=== PATIENT | male | born 1940 | race African-American/Black ===

== ENCOUNTER 2018-01-01 18:50 | Inpatient (IN) | payer MEDICARE, MEDICAID ==
[~2018-01-01] VITALS: Ht 180.3 cm; Wt 73.1 kg
[2018-01-01] MEDS ORDERED: SODIUM CHLORIDE 0.9% 1,000 ML IV ONE (22:49)
[2018-01-01] MEDS ORDERED: ONDANSETRON HCL 4MG/2ML INJ IV STA (22:49)
[2018-01-02] VITALS (7 sets, daily range): BP systolic 119–150; BP diastolic 58–87
[2018-01-02 02:14] LABS: CHLORIDE 109 mEq/L (98-107)
[2018-01-02 03:02] LABS: BASOPHILS % 0.5 % (0.0-2.0); EOSINOPHILS % 0.6 % (0.0-5.0); HEMATOCRIT. 35.4 % (42.0-52.0); HEMOGLOBIN. 11.6 g/dL (14.0-18.0); LYMPHOCYTES % 14.9 % (20.0-50.0); MEAN CORPUSCULAR HEMOGLOBIN 27.6 pg (28.0-32.0); MEAN CORPUSCULAR VOLUME 84.3 fL (80.0-94.0); MEAN PLATELET VOLUME 8.9 fl (7.4-10.4); MONOCYTES % 9.2 % (2.0-8.0); NEUTROPHILS % 74.8 % (40.0-76.0); PLATELET 247 x1000/uL (130-400); RED CELL DISTRIBUTION WIDTH 13.7 % (11.6-14.6)
[2018-01-02 03:16] LABS: INR 1.1; PROTHROMBIN TIME 10.6 sec (9.1-11.1)
[2018-01-02 08:21] LABS: CLARITY URINE TURBID (CLEAR); COLOR URINE YELLOW (YELLOW)
[2018-01-02 08:22] LABS: KETONES URINE TRACE (NEGATIVE); NITRITE URINE NEGATIVE (NEGATIVE); OCCULT BLOOD URINE TRACE (NEGATIVE); PROTEIN URINE TRACE (NEGATIVE); SPECIFIC GRAVITY URINE 1.021 (1.005-1.030); UROBILINOGEN URINE 0.2 E.U./dL (0.2-1.0)
[2018-01-02 08:23] LABS: LEUKOCYTE ESTERASE URINE NEGATIVE (NEGATIVE)
[2018-01-02] MEDS ORDERED: ZOLPIDEM TARTRATE 5MG TABLET PO PRN (08:45)
[2018-01-02] MEDS ORDERED: MAGNESIUM/ALUMINUM HYDROXIDE/SIMETHICONE 30ML UDC PO PRN (08:45)
[2018-01-02] MEDS ORDERED: TRAMADOL 50MG TABLET PO PRN (08:45)
[2018-01-02] MEDS ORDERED: LORAZEPAM 0.5MG TABLET PO PRN (08:45)
[2018-01-02] MEDS ORDERED: ONDANSETRON HCL 4MG/2ML INJ IV PRN ×2 (08:45→15:00)
[2018-01-02] MEDS ORDERED: CLONIDINE 0.1MG TABLET PO PRN (08:45)
[2018-01-02] MEDS ORDERED: GUAIFENESIN 200MG/10ML SUGAR FREE UDC PO PRN (08:45)
[2018-01-02] MEDS ORDERED: IPRATROPIUM/ALBUTEROL 0.5-3(2.5)MG/3ML NEB INH PRN (08:45)
[2018-01-02] MEDS ORDERED: NA PHOS,M-B/NA PHOS,DI-BA ENEMA 118ML PR PRN (08:45)
[2018-01-02] MEDS ORDERED: DOCUSATE SODIUM 100MG CAPSULE PO PRN (08:45)
[2018-01-02] MEDS ORDERED: DEXTROSE 50% WATER 50ML SYRINGE IV PRN (08:45)
[2018-01-02] MEDS ORDERED: ACETAMINOPHEN 325MG TABLET PO PRN (08:45)
[2018-01-02] MEDS: METOPROLOL TARTRATE 25MG TABLET PO SCH ×2 (09:18→20:04)
[2018-01-02] MEDS: FAMOTIDINE 20MG TABLET PO SCH ×2 (09:18→20:04)
[2018-01-02] MEDS: ENOXAPARIN 40MG/0.4ML SYR SUBCUT SCH (09:19)
[2018-01-02] MEDS: BLOOD SUGAR DIAGNOSTIC STRIP TEST SCH ×3 (12:13→21:21)
[2018-01-02] MEDS: INSULIN LISPRO 100 UNITS/ML SUBCUT SCH ×3 (12:14→21:00)
[2018-01-02] MEDS: METOCLOPRAMIDE 10MG/10 ML UDC PO SCH ×3 (12:21→20:03)
[2018-01-02] MEDS: SUCRALFATE 1 G/10 ML UDC PO SCH ×3 (12:25→20:03)
[2018-01-02 17:16] LABS: CREATINE KINASE MB FRACTION 1.8 ng/mL (0.5-3.6)
[2018-01-03 02:10] LABS: CREATINE KINASE MB FRACTION 1.6 ng/mL (0.5-3.6)
[2018-01-03 04:00] VITALS: BP 143/60
[2018-01-03] MEDS: INSULIN LISPRO 100 UNITS/ML SUBCUT SCH ×4 (06:19→20:54)
[2018-01-03] MEDS: BLOOD SUGAR DIAGNOSTIC STRIP TEST SCH ×4 (06:19→20:54)
[2018-01-03] MEDS: METOCLOPRAMIDE 10MG/10 ML UDC PO SCH ×4 (06:25→20:49)
[2018-01-03] MEDS: SUCRALFATE 1 G/10 ML UDC PO SCH ×4 (06:25→20:48)
[2018-01-03 07:26] VITALS: BP 129/69
[2018-01-03 08:00] VITALS: BP 129/69
[2018-01-03] MEDS: METOPROLOL TARTRATE 25MG TABLET PO SCH ×2 (09:23→20:49)
[2018-01-03] MEDS: FAMOTIDINE 20MG TABLET PO SCH ×2 (09:23→20:49)
[2018-01-03] MEDS: ENOXAPARIN 40MG/0.4ML SYR SUBCUT SCH (09:23)
[2018-01-03 12:20] VITALS: BP 140/62
[2018-01-03 20:00] VITALS: BP 143/73
[2018-01-04] VITALS: BP 146/72
[2018-01-04 04:00] VITALS: BP 131/69
[2018-01-04] MEDS: METOCLOPRAMIDE 10MG/10 ML UDC PO SCH ×4 (06:07→20:29)
[2018-01-04] MEDS: SUCRALFATE 1 G/10 ML UDC PO SCH ×4 (06:07→20:29)
[2018-01-04 08:00] VITALS: BP 146/77
[2018-01-04] MEDS: FAMOTIDINE 20MG TABLET PO SCH ×2 (09:36→20:29)
[2018-01-04] MEDS: METOPROLOL TARTRATE 25MG TABLET PO SCH ×2 (09:36→20:29)
[2018-01-04] MEDS: ENOXAPARIN 40MG/0.4ML SYR SUBCUT SCH (09:37)
[2018-01-04] MEDS: INSULIN LISPRO 100 UNITS/ML SUBCUT SCH ×3 (12:27→20:29)
[2018-01-04] MEDS: BLOOD SUGAR DIAGNOSTIC STRIP TEST SCH ×3 (12:27→20:29)
[2018-01-04 16:43] VITALS: BP 151/83
[2018-01-04 20:00] VITALS: BP 145/75
[2018-01-05] VITALS: BP 146/75
[2018-01-05 04:00] VITALS: BP 152/76
[2018-01-05] MEDS: SUCRALFATE 1 G/10 ML UDC PO SCH ×4 (06:20→20:46)
[2018-01-05] MEDS: METOCLOPRAMIDE 10MG/10 ML UDC PO SCH ×4 (06:20→20:46)
[2018-01-05] MEDS: BLOOD SUGAR DIAGNOSTIC STRIP TEST SCH ×4 (06:20→21:30)
[2018-01-05] MEDS: INSULIN LISPRO 100 UNITS/ML SUBCUT SCH ×4 (06:24→21:50)
[2018-01-05 08:00] VITALS: BP 136/74
[2018-01-05] MEDS: FAMOTIDINE 20MG TABLET PO SCH ×2 (08:38→20:46)
[2018-01-05] MEDS: METOPROLOL TARTRATE 25MG TABLET PO SCH ×2 (08:38→20:47)
[2018-01-05] MEDS: ENOXAPARIN 40MG/0.4ML SYR SUBCUT SCH (08:39)
[2018-01-05 12:00] VITALS: BP 166/90
[2018-01-05 13:06] LABS: CA 27.29 39.7 U/mL (0.0-38.6)
[2018-01-05 16:00] VITALS: BP 150/86
[2018-01-05 20:00] VITALS: BP 143/69
[2018-01-06] VITALS: BP 118/64
[2018-01-06 04:00] VITALS: BP 141/70
[2018-01-06] MEDS: BLOOD SUGAR DIAGNOSTIC STRIP TEST SCH ×4 (06:18→20:55)
[2018-01-06] MEDS: SUCRALFATE 1 G/10 ML UDC PO SCH ×4 (06:18→20:34)
[2018-01-06] MEDS: METOCLOPRAMIDE 10MG/10 ML UDC PO SCH ×4 (06:18→20:34)
[2018-01-06] MEDS: INSULIN LISPRO 100 UNITS/ML SUBCUT SCH ×4 (06:46→20:55)
[2018-01-06 08:24] LABS: CANCER ANTIGEN 125 45.9 U/mL (Not Estab.)
[2018-01-06] MEDS: FAMOTIDINE 20MG TABLET PO SCH ×2 (08:31→20:34)
[2018-01-06] MEDS: METOPROLOL TARTRATE 25MG TABLET PO SCH ×2 (08:32→20:34)
[2018-01-06] MEDS: ENOXAPARIN 40MG/0.4ML SYR SUBCUT SCH (09:00)
[2018-01-06 12:00] VITALS: BP 139/67
[2018-01-06 16:00] VITALS: BP 137/65
[2018-01-06 20:00] VITALS: BP 122/64
[2018-01-07] VITALS: BP 112/70
[2018-01-07 04:00] VITALS: BP 123/88
[2018-01-07] MEDS: METOCLOPRAMIDE 10MG/10 ML UDC PO SCH ×4 (06:15→20:31)
[2018-01-07] MEDS: SUCRALFATE 1 G/10 ML UDC PO SCH ×4 (06:15→20:39)
[2018-01-07] MEDS: BLOOD SUGAR DIAGNOSTIC STRIP TEST SCH ×4 (06:16→20:39)
[2018-01-07] MEDS: INSULIN LISPRO 100 UNITS/ML SUBCUT SCH ×4 (06:19→20:39)
[2018-01-07 08:00] VITALS: BP 145/79
[2018-01-07] MEDS: ENOXAPARIN 40MG/0.4ML SYR SUBCUT SCH (09:00)
[2018-01-07] MEDS: FAMOTIDINE 20MG TABLET PO SCH ×2 (09:36→20:40)
[2018-01-07] MEDS: METOPROLOL TARTRATE 25MG TABLET PO SCH ×2 (09:36→20:40)
[2018-01-07] MEDS ORDERED: LIDOCAINE HCL 1% 20ML VIAL (Pyxis) INJ ONE (11:09)
[2018-01-07] MEDS ORDERED: SODIUM BICARBONATE 4% (2.4MEQ) 5ML VIAL IV ONE (11:10)
[2018-01-07 16:24] VITALS: BP 137/51
[2018-01-07 20:00] VITALS: BP 141/70
[2018-01-08] VITALS: BP 134/68
[2018-01-08 04:00] VITALS: BP 141/69
[2018-01-08] MEDS: BLOOD SUGAR DIAGNOSTIC STRIP TEST SCH ×4 (06:25→20:42)
[2018-01-08] MEDS: INSULIN LISPRO 100 UNITS/ML SUBCUT SCH ×4 (06:27→20:42)
[2018-01-08] MEDS: METOCLOPRAMIDE 10MG/10 ML UDC PO SCH ×4 (06:27→20:43)
[2018-01-08] MEDS: SUCRALFATE 1 G/10 ML UDC PO SCH ×4 (06:27→20:43)
[2018-01-08 08:00] VITALS: BP 144/73
[2018-01-08] MEDS: FAMOTIDINE 20MG TABLET PO SCH ×2 (08:11→20:44)
[2018-01-08] MEDS: METOPROLOL TARTRATE 25MG TABLET PO SCH ×2 (08:11→20:44)
[2018-01-08] MEDS: ENOXAPARIN 40MG/0.4ML SYR SUBCUT SCH (08:11)
[2018-01-08 12:00] VITALS: BP 123/74
[2018-01-08 16:00] VITALS: BP 133/72
[2018-01-08 20:00] VITALS: BP 130/68
[2018-01-09] VITALS: BP 142/75
[2018-01-09 04:00] VITALS: BP 137/72
[2018-01-09] MEDS: SUCRALFATE 1 G/10 ML UDC PO SCH ×2 (06:15→11:42)
[2018-01-09] MEDS: METOCLOPRAMIDE 10MG/10 ML UDC PO SCH ×2 (06:15→11:43)
[2018-01-09] MEDS: INSULIN LISPRO 100 UNITS/ML SUBCUT SCH ×2 (06:20→11:43)
[2018-01-09] MEDS: BLOOD SUGAR DIAGNOSTIC STRIP TEST SCH ×2 (06:20→11:20)
[2018-01-09 08:00] VITALS: BP 118/63
[2018-01-09] MEDS: METOPROLOL TARTRATE 25MG TABLET PO SCH (09:02)
[2018-01-09] MEDS: FAMOTIDINE 20MG TABLET PO SCH (09:02)
[2018-01-09] MEDS: ENOXAPARIN 40MG/0.4ML SYR SUBCUT SCH (09:03)
[2018-01-09 09:54] VITALS: BP 128/77
[2018-01-09 12:00] VITALS: BP 118/71
== END 2018-01-09 14:05 | disposition home health service (06) | DRG 987 ==
LOC: ER 18:50 → 8WST 01-02 03:41 → ENRESERV 01-02 04:30
PROVIDERS: ADMIT Internal Medicine; ATTEND Internal Medicine
PROC: 07B23ZX Excision of Left Neck Lymphatic, Percutaneous Approach, Diagnostic (ICD-10-PCS; principal; 2018-01-07)
DX: C34.90 Malignant neoplasm of unspecified part of unspecified bronchus or lung (principal); E43 Unspecified severe protein-calorie malnutrition; Q85.9 Phakomatosis, unspecified; E11.65 Type 2 diabetes mellitus with hyperglycemia; R59.9 Enlarged lymph nodes, unspecified; E11.649 Type 2 diabetes mellitus with hypoglycemia without coma; I10 Essential (primary) hypertension; D64.9 Anemia, unspecified; N28.89 Other specified disorders of kidney and ureter; K76.9 Liver disease, unspecified; Z60.2 Problems related to living alone; Z79.4 Long term (current) use of insulin; Z68.22 Body mass index [BMI] 22.0-22.9, adult; Z87.891 Personal history of nicotine dependence; Z89.432 Acquired absence of left foot; Z85.9 Personal history of malignant neoplasm, unspecified
CPT/HCPCS: 36415; 38505; 71045; 71250; 74176; 76942; 80061; 82550; 82553; 82962; 83036; 84484; 86300; 86301; 86304; 88305; 93005; 93306; 93970; 96360; 96361; 97110; 97116; 97162; 97166; 97530; 97535; 99285; J1650; J1815; J3490; J7030; J7620; J8597